=== PATIENT | female | born 1930 | race Caucasian/White ===

== ENCOUNTER 2017-03-26 11:37 | Inpatient (IN) | payer MEDICARE ==
[~2017-03-26] VITALS: Ht 142.2 cm; Wt 58.5 kg
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
[2017-03-26] MEDS ORDERED: ACETAMINOPHEN 650 MG SUPP.RECT RC PRN (13:15)
[2017-03-26] MEDS ORDERED: MAG HYDROX/AL HYDROX/SIMETH 30 ML LIQUID UDC PO PRN (13:15)
[2017-03-26] MEDS ORDERED: ACETAMINOPHEN 325 MG TABLET PO PRN (13:15)
[2017-03-26] MEDS ORDERED: ZOLPIDEM 5 MG TABLET PO PRN (13:15)
[2017-03-26] MEDS ORDERED: MAGNESIUM HYDROXIDE 30 ML LIQUID UDC PO PRN (20:30)
[2017-03-26] MEDS: NYSTATIN POWDER 15 GM BOTTLE TOP SCH (20:35)
[2017-03-26 21:07] VITALS: BP 127/61
[2017-03-27 07:30] VITALS: BP 127/59
[2017-03-27 07:43] LABS: BASOPHILS % (AUTO) 0.5 % (0.0-2.0); EOSINOPHILS # (AUTO) 0.2 K/uL (0.0-0.7); EOSINOPHILS % (AUTO) 2.5 % (0.0-7.0); HEMATOCRIT 41.2 % (37-47); HEMOGLOBIN 13.9 G/DL (12.0-16.0); LYMPHOCYTES # (AUTO) 2.1 K/UL (0.8-4.8); LYMPHOCYTES % (AUTO) 27.1 % (20.5-51.5); MEAN CORPUSCULAR HEMOGLOBIN 29.8 UUG (27.0-31.0); MEAN CORPUSCULAR HGB CONC 34 g/dL (32.0-37.0); MEAN CORPUSCULAR VOLUME 88.4 FL (81.0-99.0); MONOCYTES # (AUTO) 0.6 K/UL (0.1-1.30); MONOCYTES % (AUTO) 8.2 % (0.0-11.0); NEUTROPHILS # (AUTO) 4.7 K/UL (1.8-8.9); NEUTROPHILS % (AUTO) 61.7 % (38.5-71.5); PLATELET COUNT (AUTO) 221 K/UL (150-450); RED BLOOD CELL COUNT(AUTO) 4.66 MIL/UL (4.2-5.4); WHITE BLOOD COUNT (AUTO) 7.6 K/UL (4.0-11.2)
[2017-03-27 07:54] LABS: ALANINE AMINOTRANSFERASE 13 U/L (14-59); ALKALINE PHOSPHATASE 105 U/L (50-136); ASPARTATE AMINOTRANSFERASE 15 U/L (15-37); BILIRUBIN,TOTAL 1.1 mg/dL (0.2-1.0); CARBON DIOXIDE 25 mmol/L (21-32); CHLORIDE 110 mmol/L (98-107); CHOLESTEROL 239 mg/dL (<200); CREATININE 0.7 mg/dL (0.6-1.3); GLUCOSE 102 mg/dL (74-106); HDL CHOLESTEROL 74 mg/dL (40-60); POTASSIUM 3.9 mmol/L (3.5-5.1); TOTAL PROTEIN, SERUM 6.6 g/dL (6.4-8.2); TRIGLYCERIDES 95 MG/DL (30-150); UREA NITROGEN, BLOOD 16 mg/dL (7-18)
[2017-03-27 08:02] LABS: THYROID STIMULATING HORMONE 3.181 mIU/mL (0.358-3.740)
[2017-03-27] MEDS: LORAZEPAM 1 MG TABLET PO PRN (09:14)
[2017-03-27] MEDS: NYSTATIN POWDER 15 GM BOTTLE TOP SCH ×2 (09:31→20:25)
[2017-03-27 15:14] VITALS: BP 125/64
[2017-03-27 20:06] VITALS: BP 141/63
[2017-03-27] MEDS: QUETIAPINE FUMARATE 25 MG TABLET PO SCH (20:23)
[2017-03-27] MEDS: ATORVASTATIN 10 MG TABLET PO SCH (20:23)
--- NOTE | 2017-03-27 21:30 | NUR ---
Pt C/O 11/21 HEADACHE, TYLENOL 650mg ADMINISTERED WITH GOOD EFFECT.
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
[2017-03-28 07:30] VITALS: BP 117/54
[2017-03-28] MEDS: NYSTATIN POWDER 15 GM BOTTLE TOP SCH ×2 (09:56→20:35)
[2017-03-28 15:18] VITALS: BP 141/71
[2017-03-28 20:07] VITALS: BP 129/65
[2017-03-28] MEDS: QUETIAPINE FUMARATE 25 MG TABLET PO SCH (20:35)
[2017-03-28] MEDS: ATORVASTATIN 10 MG TABLET PO SCH (20:36)
[2017-03-29 06:57] LABS: *BILIRUBIN,URIN NEGATIVE (NEGATIVE); *BLOOD, URINE NEGATIVE (NEGATIVE); *CLARITY,URINE CLEAR (CLEAR); *COLOR,URINE YELLOW (YELLOW); *KETONES,URINE NEGATIVE (NEGATIVE); *PROTEIN,URINE NEGATIVE (NEGATIVE); *UROBILINOGEN,URINE 0.2 E.U./dl (NORMAL); LEUKOCYTE ESTERASE ,URINE 1+ (NEGATIVE); NITRITE, URINE NEGATIVE (NEGATIVE); UGLUCOSE NEGATIVE (NEGATIVE)
[2017-03-29 07:06] LABS: BACTERIA,URINE FEW /HPF (NONE SEEN); RBC,URINE 0-3 /HPF (0-3); SQUAMOUS EPITHELIAL CELL,UR FEW /HPF (NONE SEEN)
[2017-03-29 07:30] VITALS: BP 136/59
[2017-03-29] MEDS: NYSTATIN POWDER 15 GM BOTTLE TOP SCH ×2 (09:13→20:55)
[2017-03-29 16:00] VITALS: BP 129/64
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
--- NOTE | 2017-03-29 18:00 | NUR ---
Pt's rash on mid CW healing. Pt has been compliant with treatment.
[2017-03-29 20:30] VITALS: BP 126/59
[2017-03-29] MEDS: ATORVASTATIN 10 MG TABLET PO SCH (20:55)
[2017-03-29] MEDS: QUETIAPINE FUMARATE 25 MG TABLET PO SCH (20:55)
--- NOTE | 2017-03-29 22:00 | NUR ---
received to care, sitting on her bed, isolative, but pleasant when engaged. compliant with medications, and staff direction. as of 2199, she appears to be asleep. no distress noted. will continue to monitor closely.
--- NOTE | 2017-03-30 06:00 | NUR ---
slept 9.0 hours, total. continues to sleep. no distress noted.
[2017-03-30 07:30] VITALS: BP 136/62
[2017-03-30] MEDS: NYSTATIN POWDER 15 GM BOTTLE TOP SCH ×2 (09:20→20:45)
[2017-03-30] MEDS: LORAZEPAM 1 MG TABLET PO PRN (10:11)
[2017-03-30 16:19] VITALS: BP 131/65
[2017-03-30 20:44] VITALS: BP 127/67
[2017-03-30] MEDS: QUETIAPINE FUMARATE 25 MG TABLET PO SCH (20:45)
[2017-03-30] MEDS: ATORVASTATIN 10 MG TABLET PO SCH (20:45)
--- NOTE | 2017-03-31 06:00 | NUR ---
slept 6.0 hours, total.
[2017-03-31 07:30] VITALS: BP 136/64
[2017-03-31] MEDS: NYSTATIN POWDER 15 GM BOTTLE TOP SCH ×2 (09:11→20:28)
[2017-03-31 15:22] VITALS: BP 131/58
[2017-03-31] MEDS: QUETIAPINE FUMARATE 25 MG TABLET PO SCH (20:27)
[2017-03-31] MEDS: ATORVASTATIN 10 MG TABLET PO SCH (20:27)
[2017-03-31 20:36] VITALS: BP 135/64
--- NOTE | 2017-03-31 20:56 | NUR ---
Patient in her room. A/O x 1; she continue been suspicious, guarded. However, she was able to comply with medication regiment at this time. She is able to make her needs know. Denies SI or HI AH/V/S at this time.
[2017-04-01 07:30] VITALS: BP 130/59
[2017-04-01] MEDS: NYSTATIN POWDER 15 GM BOTTLE TOP SCH ×2 (08:34→21:08)
[2017-04-01 15:00] VITALS: BP 143/59
--- NOTE | 2017-04-01 15:43 | NUR ---
Discharge Planning Note: SW attempted to call patient's daughter Mary Armenta [[phone]] to discuss discharge plans. There was no answer, SW left a voicemail.
--- NOTE | 2017-04-01 16:17 | NUR ---
Associate Justice: MARTHA submitted [facility] Mental Health Report to DOJ on 04/01 at 4:15pm.
[2017-04-01 20:27] VITALS: BP 128/68
[2017-04-01] MEDS: ATORVASTATIN 10 MG TABLET PO SCH (20:33)
[2017-04-01] MEDS: QUETIAPINE FUMARATE 25 MG TABLET PO SCH (20:33)
--- NOTE | 2017-04-01 21:06 | NUR ---
PATIENT RECEIVED IN ROOM AWAKE SITTING UP IN BED. PATIENT ALERT/ORIENTED X2. PATIENT CONFUSED, PATIENT PATIENT REMAINS PARANOID/SUSPICIOUS/GUARDED. PATIENT REQUIRES PROMPTING WITH MEDICATION, COMPLAINT WITH MEDICATION WITH PROMPTING. PATIENT DENIES PAIN AT THIS TIME, WILL CONTINUE TO MONITOR. BED IN LOWEST POSITION, BED LOCKED, AND BED ALARM ON WHILE IN BED.
[2017-04-02 07:30] VITALS: BP 122/59
[2017-04-02 15:09] VITALS: BP 125/58
--- NOTE | 2017-04-02 16:09 | NUR ---
Wednesday Discharge Note: Patient will be discharged home with family [[place] [address]] via private transportation at 12pm. SW spoke with patients daughter Mary Pope (Maria) [[phone]] who stated she will fruit picker patient. Patients daughter is aware and agreeable to discharge plans. Patient was referred to [facility] [phone] for [facility] referrals. Patient was provided with outpatient mental health resources to [facility] , Oney[facility] Dodson , and the [place] [facility] . Patient was also provided a list of referrals for outpatient psychiatrists including Dr. Yuan [[phone]], Dr. Parnell [[phone]], and Dr. Brothers [[phone]]. Patient was also provided with referrals for community resources [[facility]: [phone]; [facility]: [phone]].
[2017-04-02 20:07] VITALS: BP 121/60
[2017-04-02] MEDS: ATORVASTATIN 10 MG TABLET PO SCH (20:12)
[2017-04-02] MEDS: NYSTATIN POWDER 15 GM BOTTLE TOP SCH (20:12)
[2017-04-02] MEDS: QUETIAPINE FUMARATE 25 MG TABLET PO SCH (20:12)
[2017-04-03 07:30] VITALS: BP 122/62
[2017-04-03] MEDS: NYSTATIN POWDER 15 GM BOTTLE TOP SCH (09:14)
--- NOTE | 2017-04-03 13:30 | NUR ---
PT IS BEING DISCHARGED HOME WITH DAUGHTER SRAVAN. DISCHARGE INSTRUCTIONS ARE GIVEN TO THE DAUGHTER. PT IS FORGETFUL AND DISORGANIZED, BUT COOPERATIVE AND COMPLIANT. REFERALS FOR PSYCHIATRISTS AND INTERNISTS WERE GIVEN. SRAVAN VERBALIZED UNDERSTANDING. PRESCRIPTIONS FOR BOTH MEDICAL AND PSYCHIATRIC MEDICATIONS GIVEN. ALL BELONGINGS RETURNED, MONEY COUNTED IN THE PRESENCE OF THE PATIENT, DAUGHTER, ASHLEY LOVELL AND LUCIANO LAWSON.
== END 2017-04-03 13:30 | disposition home or self-care (01) | DRG 885 ==
LOC: GPS 12:46
PROVIDERS: ADMIT Psychiatry & Neurology Psychiatry; ATTEND Internal Medicine
DX: F29 Unspecified psychosis not due to a substance or known physiological condition (principal); G93.40 Encephalopathy, unspecified; E88.09 Other disorders of plasma-protein metabolism, not elsewhere classified; F03.91 Unspecified dementia, unspecified severity, with behavioral disturbance; E78.5 Hyperlipidemia, unspecified; E80.6 Other disorders of bilirubin metabolism; L30.9 Dermatitis, unspecified; Z79.899 Other long term (current) drug therapy; L98.8 Other specified disorders of the skin and subcutaneous tissue; K42.9 Umbilical hernia without obstruction or gangrene
CPT/HCPCS: 36415; 70450; 83735; 84100; 84443; 85025; 87086

== ENCOUNTER 2017-11-22 23:18 | Inpatient (IN) | payer MEDICARE ==
[~2017-11-22] VITALS: Ht 139.7 cm; Wt 57.6 kg
[2017-11-22] MEDS ORDERED: TEMA7.5C2 PO (23:48)
[2017-11-22] MEDS ORDERED: ACET325T53 PO (23:48)
[2017-11-22] MEDS ORDERED: LORA2VIA32 IM (23:48)
[2017-11-22] MEDS ORDERED: QUET25TA PO (23:48)
[2017-11-22] MEDS ORDERED: LOPE2TAB25 PO (23:48)
[2017-11-22] MEDS ORDERED: NITR0.4T48 PO (23:48)
[2017-11-22] MEDS ORDERED: ASPI81TA31 PO (23:48)
[2017-11-22] MEDS ORDERED: LORA0.5T PO (23:48)
[2017-11-22] MEDS ORDERED: DOCU250C14 PO (23:48)
[2017-11-22] MEDS ORDERED: PSYL1PAC8 PO (23:48)
[2017-11-22] MEDS ORDERED: MULT-1119 PO (23:48)
[2017-11-22] MEDS ORDERED: LISI-607 PO (23:48)
[2017-11-22] MEDS ORDERED: METO25TA3 PO (23:48)
[2017-11-22] MEDS ORDERED: MAG30ORA PO (23:48)
[2017-11-22] MEDS ORDERED: ATOR20TA27 PO (23:48)
[2017-11-23] MEDS ORDERED: MAG HYDROX/AL HYDROX/SIMETH 30 ML LIQUID UDC PO PRN (02:00)
[2017-11-23] MEDS ORDERED: MAGNESIUM HYDROXIDE 30 ML LIQUID UDC PO PRN (02:00)
[2017-11-23 07:30] VITALS: BP 171/80
[2017-11-23] MEDS: SERTRALINE HCL 50 MG TABLET PO SCH (12:26)
[2017-11-23 15:35] VITALS: BP 142/74
[2017-11-23] MEDS: ATORVASTATIN 20 MG TABLET PO SCH (19:51)
[2017-11-23] MEDS: QUETIAPINE FUMARATE 25 MG TABLET PO SCH (19:51)
[2017-11-24 08:00] VITALS: BP 140/58
[2017-11-24] MEDS: ASPIRIN 81 MG TAB.CHEW PO SCH (09:00)
[2017-11-24] MEDS: DOCUSATE SODIUM 250 MG CAPSULE PO SCH (09:00)
[2017-11-24] MEDS: METOPROLOL SUCCINATE XL 25 MG TAB.SR.24H PO SCH (09:00)
[2017-11-24] MEDS: SERTRALINE HCL 50 MG TABLET PO SCH (09:00)
[2017-11-24] MEDS: PSYLLIUM SEED PACKET PO SCH (09:00)
[2017-11-24] MEDS: MULTIVITAMINS,THERAPEUTIC TABLET PO SCH (09:00)
[2017-11-24] MEDS: LISINOPRIL 5 MG TABLET PO SCH (09:01)
[2017-11-24 12:13] VITALS: BP 106/49
[2017-11-24 16:00] VITALS: BP 108/54
[2017-11-24 19:30] VITALS: BP 132/55
[2017-11-24] MEDS: LORAZEPAM 1 MG TABLET PO PRN (19:55)
[2017-11-24] MEDS: QUETIAPINE FUMARATE 25 MG TABLET PO SCH (21:04)
[2017-11-24] MEDS: ATORVASTATIN 20 MG TABLET PO SCH (21:04)
[2017-11-25 08:00] VITALS: BP 121/61
[2017-11-25] MEDS: SERTRALINE HCL 50 MG TABLET PO SCH (09:00)
[2017-11-25] MEDS: DOCUSATE SODIUM 250 MG CAPSULE PO SCH (09:00)
[2017-11-25] MEDS: MULTIVITAMINS,THERAPEUTIC TABLET PO SCH (09:01)
[2017-11-25] MEDS: METOPROLOL SUCCINATE XL 25 MG TAB.SR.24H PO SCH (09:01)
[2017-11-25] MEDS: ASPIRIN 81 MG TAB.CHEW PO SCH (09:02)
[2017-11-25] MEDS: PSYLLIUM SEED PACKET PO SCH (09:02)
[2017-11-25] MEDS: LISINOPRIL 5 MG TABLET PO SCH (09:02)
[2017-11-25] MEDS ORDERED: LORAZEPAM 2 MG/1 ML VIAL IM ONE (14:15)
[2017-11-25] MEDS ORDERED: OLANZAPINE 10 MG VIAL IM ONE (14:15)
[2017-11-25 16:00] VITALS: BP 119/50
[2017-11-25 20:53] VITALS: BP 100/39
[2017-11-25] MEDS: QUETIAPINE FUMARATE 25 MG TABLET PO SCH (21:00)
[2017-11-25] MEDS: ATORVASTATIN 20 MG TABLET PO SCH (21:00)
[2017-11-25 21:30] VITALS: BP 100/66
[2017-11-26] MEDS: ACETAMINOPHEN 325 MG TABLET PO PRN (06:58)
[2017-11-26 07:30] VITALS: BP 123/33
[2017-11-26] MEDS: DOCUSATE SODIUM 250 MG CAPSULE PO SCH (09:00)
[2017-11-26] MEDS: METOPROLOL SUCCINATE XL 25 MG TAB.SR.24H PO SCH (09:00)
[2017-11-26] MEDS: PSYLLIUM SEED PACKET PO SCH (09:00)
[2017-11-26] MEDS: LISINOPRIL 5 MG TABLET PO SCH (09:00)
[2017-11-26] MEDS: ASPIRIN 81 MG TAB.CHEW PO SCH (09:04)
[2017-11-26] MEDS: QUETIAPINE FUMARATE 25 MG TABLET PO SCH ×2 (09:05→20:35)
[2017-11-26] MEDS: MULTIVITAMINS,THERAPEUTIC TABLET PO SCH (09:05)
[2017-11-26] MEDS: SERTRALINE HCL 50 MG TABLET PO SCH (09:06)
[2017-11-26 15:45] VITALS: BP 160/70
[2017-11-26] MEDS: ATORVASTATIN 20 MG TABLET PO SCH (20:35)
[2017-11-26 21:29] VITALS: BP 128/60
[2017-11-26] MEDS: ZOLPIDEM 5 MG TABLET PO PRN (23:34)
[2017-11-27] VITALS (12 sets, daily range): BP systolic 114–171; BP diastolic 53–80
[2017-11-27] MEDS: LISINOPRIL 5 MG TABLET PO SCH ×2 (09:00→10:19)
[2017-11-27] MEDS: ASPIRIN 81 MG TAB.CHEW PO SCH (09:00)
[2017-11-27] MEDS: MULTIVITAMINS,THERAPEUTIC TABLET PO SCH (09:00)
[2017-11-27] MEDS: QUETIAPINE FUMARATE 25 MG TABLET PO SCH ×2 (09:00→21:14)
[2017-11-27] MEDS: SERTRALINE HCL 50 MG TABLET PO SCH (09:00)
[2017-11-27] MEDS: ACETAMINOPHEN 325 MG TABLET PO SCH ×2 (10:17→17:38)
[2017-11-27] MEDS: DOCUSATE SODIUM 250 MG CAPSULE PO SCH (10:17)
[2017-11-27] MEDS: METOPROLOL SUCCINATE XL 25 MG TAB.SR.24H PO SCH (10:18)
[2017-11-27] MEDS: PSYLLIUM SEED PACKET PO SCH (10:20)
[2017-11-27] MEDS: LORAZEPAM 1 MG TABLET PO PRN (17:38)
[2017-11-27] MEDS: ATORVASTATIN 20 MG TABLET PO SCH (21:14)
[2017-11-28 07:30] VITALS: BP 112/50
[2017-11-28] MEDS: DOCUSATE SODIUM 250 MG CAPSULE PO SCH (09:35)
[2017-11-28] MEDS: ASPIRIN 81 MG TAB.CHEW PO SCH (09:35)
[2017-11-28] MEDS: MULTIVITAMINS,THERAPEUTIC TABLET PO SCH (09:36)
[2017-11-28] MEDS: LISINOPRIL 5 MG TABLET PO SCH (09:36)
[2017-11-28] MEDS: QUETIAPINE FUMARATE 25 MG TABLET PO SCH ×3 (09:36→22:11)
[2017-11-28] MEDS: SERTRALINE HCL 50 MG TABLET PO SCH (09:37)
[2017-11-28] MEDS: METOPROLOL SUCCINATE XL 25 MG TAB.SR.24H PO SCH (09:37)
[2017-11-28] MEDS: ACETAMINOPHEN 325 MG TABLET PO PRN ×2 (10:05→19:54)
[2017-11-28] MEDS: PSYLLIUM SEED PACKET PO SCH (10:14)
[2017-11-28 15:30] VITALS: BP 110/51
[2017-11-28] MEDS: LORAZEPAM 1 MG TABLET PO PRN (19:54)
[2017-11-28 20:00] VITALS: BP 102/55
[2017-11-28] MEDS: ATORVASTATIN 20 MG TABLET PO SCH ×2 (21:00→22:10)
[2017-11-29] MEDS: LORAZEPAM 1 MG TABLET PO PRN (03:37)
[2017-11-29] MEDS: ACETAMINOPHEN 325 MG TABLET PO PRN (03:37)
[2017-11-29 07:30] VITALS: BP 120/51
[2017-11-29] MEDS: LISINOPRIL 5 MG TABLET PO SCH (08:40)
[2017-11-29] MEDS: METOPROLOL SUCCINATE XL 25 MG TAB.SR.24H PO SCH (08:40)
[2017-11-29] MEDS: MULTIVITAMINS,THERAPEUTIC TABLET PO SCH (08:40)
[2017-11-29] MEDS: QUETIAPINE FUMARATE 25 MG TABLET PO SCH ×2 (08:40→20:43)
[2017-11-29] MEDS: ASPIRIN 81 MG TAB.CHEW PO SCH (08:41)
[2017-11-29] MEDS: SERTRALINE HCL 50 MG TABLET PO SCH (08:42)
[2017-11-29] MEDS: DOCUSATE SODIUM 250 MG CAPSULE PO SCH (08:42)
[2017-11-29] MEDS: PSYLLIUM SEED PACKET PO SCH (08:42)
[2017-11-29 16:32] VITALS: BP 106/95
[2017-11-29 19:30] VITALS: BP 112/38
[2017-11-29] MEDS: ATORVASTATIN 20 MG TABLET PO SCH (20:43)
[2017-11-29] MEDS: ZOLPIDEM 5 MG TABLET PO PRN (23:20)
[2017-11-30 07:30] VITALS: BP 114/57
[2017-11-30 07:31] LABS: BASOPHILS % (AUTO) 0.6 % (0.0-2.0); EOSINOPHILS # (AUTO) 0.4 K/uL (0.0-0.7); EOSINOPHILS % (AUTO) 5.7 % (0.0-7.0); HEMATOCRIT 39.7 % (31.2-41.9); HEMOGLOBIN 13.5 g/dL (10.9-14.3); LYMPHOCYTES # (AUTO) 2.2 K/uL (20.0-40.0); LYMPHOCYTES % (AUTO) 30.3 % (20.5-51.5); MEAN CORPUSCULAR HEMOGLOBIN 30.5 uug (24.7-32.8); MEAN CORPUSCULAR HGB CONC 34 g/dL (32.3-35.6); MEAN CORPUSCULAR VOLUME 89.5 fL (75.5-95.3); MONOCYTES # (AUTO) 0.8 K/uL (2.0-10.0); NEUTROPHILS # (AUTO) 3.9 K/uL (1.8-8.9); NEUTROPHILS % (AUTO) 52.4 % (38.5-71.5); PLATELET COUNT (AUTO) 161 K/uL (179-408); RED BLOOD CELL COUNT(AUTO) 4.44 MIL/uL (3.63-4.92); WHITE BLOOD COUNT (AUTO) 7.4 K/uL (3.8-11.8)
[2017-11-30] MEDS: ASPIRIN 81 MG TAB.CHEW PO SCH (08:38)
[2017-11-30] MEDS: QUETIAPINE FUMARATE 25 MG TABLET PO SCH ×2 (08:39→21:20)
[2017-11-30] MEDS: METOPROLOL SUCCINATE XL 25 MG TAB.SR.24H PO SCH (08:40)
[2017-11-30] MEDS: LISINOPRIL 5 MG TABLET PO SCH (08:41)
[2017-11-30] MEDS: DOCUSATE SODIUM 250 MG CAPSULE PO SCH (08:41)
[2017-11-30] MEDS: MULTIVITAMINS,THERAPEUTIC TABLET PO SCH (08:41)
[2017-11-30] MEDS: PSYLLIUM SEED PACKET PO SCH (08:41)
[2017-11-30] MEDS: SERTRALINE HCL 50 MG TABLET PO SCH (08:41)
[2017-11-30 10:58] LABS: CARBON DIOXIDE 28 mmol/L (21-32); CHLORIDE 107 mmol/L (98-107); CREATININE 0.7 mg/dL (0.6-1.3); GLUCOSE 93 mg/dL (74-106); MAGNESIUM 1.9 mg/dL (1.8-2.4); PHOSPHOROUS 3.8 mg/dL (2.5-4.9); POTASSIUM 4.5 mmol/L (3.5-5.1); UREA NITROGEN, BLOOD 21 mg/dL (7-18)
[2017-11-30 16:29] VITALS: BP 118/58
[2017-11-30] MEDS: LORAZEPAM 1 MG TABLET PO PRN (19:35)
[2017-11-30 19:52] VITALS: BP 106/55
[2017-11-30] MEDS: ATORVASTATIN 20 MG TABLET PO SCH (21:20)
[2017-11-30 21:30] VITALS: BP 134/52
[2017-12-01 08:00] VITALS: BP 151/65
[2017-12-01] MEDS: PSYLLIUM SEED PACKET PO SCH (09:08)
[2017-12-01] MEDS: DOCUSATE SODIUM 250 MG CAPSULE PO SCH (09:08)
[2017-12-01] MEDS: QUETIAPINE FUMARATE 25 MG TABLET PO SCH ×2 (09:08→20:00)
[2017-12-01] MEDS: METOPROLOL SUCCINATE XL 25 MG TAB.SR.24H PO SCH (09:09)
[2017-12-01] MEDS: LISINOPRIL 5 MG TABLET PO SCH (09:12)
[2017-12-01] MEDS: MULTIVITAMINS,THERAPEUTIC TABLET PO SCH (09:12)
[2017-12-01] MEDS: SERTRALINE HCL 50 MG TABLET PO SCH (09:13)
[2017-12-01] MEDS: ASPIRIN 81 MG TAB.CHEW PO SCH (09:13)
[2017-12-01 16:00] VITALS: BP 102/53
[2017-12-01] MEDS: ATORVASTATIN 20 MG TABLET PO SCH (20:00)
[2017-12-01 20:19] VITALS: BP 116/56
[2017-12-02] MEDS: SERTRALINE HCL 50 MG TABLET PO SCH (09:00)
[2017-12-02] MEDS: LISINOPRIL 5 MG TABLET PO SCH (09:00)
[2017-12-02] MEDS: ASPIRIN 81 MG TAB.CHEW PO SCH (09:00)
[2017-12-02] MEDS: QUETIAPINE FUMARATE 25 MG TABLET PO SCH ×3 (09:00→20:43)
[2017-12-02] MEDS: PSYLLIUM SEED PACKET PO SCH (09:00)
[2017-12-02] MEDS: METOPROLOL SUCCINATE XL 25 MG TAB.SR.24H PO SCH (09:00)
[2017-12-02] MEDS: DOCUSATE SODIUM 250 MG CAPSULE PO SCH (09:00)
[2017-12-02] MEDS: MULTIVITAMINS,THERAPEUTIC TABLET PO SCH (09:00)
[2017-12-02] MEDS ORDERED: OLANZAPINE 10 MG VIAL IM ONE (09:15)
[2017-12-02 16:27] VITALS: BP 158/45
[2017-12-02] MEDS: ATORVASTATIN 20 MG TABLET PO SCH (20:43)
[2017-12-02 21:26] VITALS: BP 157/76
[2017-12-03 07:30] VITALS: BP 133/55
[2017-12-03] MEDS: DOCUSATE SODIUM 250 MG CAPSULE PO SCH (09:12)
[2017-12-03] MEDS: ASPIRIN 81 MG TAB.CHEW PO SCH (09:12)
[2017-12-03] MEDS: MULTIVITAMINS,THERAPEUTIC TABLET PO SCH (09:12)
[2017-12-03] MEDS: QUETIAPINE FUMARATE 25 MG TABLET PO SCH ×3 (09:12→20:04)
[2017-12-03] MEDS: SERTRALINE HCL 50 MG TABLET PO SCH (09:13)
[2017-12-03] MEDS: LISINOPRIL 5 MG TABLET PO SCH (09:13)
[2017-12-03] MEDS: METOPROLOL SUCCINATE XL 25 MG TAB.SR.24H PO SCH (09:14)
[2017-12-03] MEDS: PSYLLIUM SEED PACKET PO SCH (09:14)
[2017-12-03 15:45] VITALS: BP 139/52
[2017-12-03] MEDS: ATORVASTATIN 20 MG TABLET PO SCH (20:04)
[2017-12-03 20:31] VITALS: BP 121/53
[2017-12-04 07:30] VITALS: BP 143/51
[2017-12-04] MEDS: PSYLLIUM SEED PACKET PO SCH (08:47)
[2017-12-04] MEDS: DOCUSATE SODIUM 250 MG CAPSULE PO SCH (08:48)
[2017-12-04] MEDS: MULTIVITAMINS,THERAPEUTIC TABLET PO SCH (08:48)
[2017-12-04] MEDS: LISINOPRIL 5 MG TABLET PO SCH (08:48)
[2017-12-04] MEDS: QUETIAPINE FUMARATE 25 MG TABLET PO SCH ×3 (08:48→20:52)
[2017-12-04] MEDS: SERTRALINE HCL 50 MG TABLET PO SCH (08:49)
[2017-12-04] MEDS: ASPIRIN 81 MG TAB.CHEW PO SCH (08:49)
[2017-12-04] MEDS: METOPROLOL SUCCINATE XL 25 MG TAB.SR.24H PO SCH (08:53)
[2017-12-04 15:30] VITALS: BP 113/51
[2017-12-04] MEDS: ATORVASTATIN 20 MG TABLET PO SCH (20:51)
[2017-12-05] MEDS: LORAZEPAM 1 MG TABLET PO PRN ×2 (05:33→12:01)
[2017-12-05 07:30] VITALS: BP 130/51
[2017-12-05] MEDS: PSYLLIUM SEED PACKET PO SCH (09:00)
[2017-12-05] MEDS: MULTIVITAMINS,THERAPEUTIC TABLET PO SCH (09:00)
[2017-12-05] MEDS: METOPROLOL SUCCINATE XL 25 MG TAB.SR.24H PO SCH (09:00)
[2017-12-05] MEDS: SERTRALINE HCL 50 MG TABLET PO SCH (09:00)
[2017-12-05] MEDS: ASPIRIN 81 MG TAB.CHEW PO SCH (09:00)
[2017-12-05] MEDS: LISINOPRIL 5 MG TABLET PO SCH (09:00)
[2017-12-05] MEDS: DOCUSATE SODIUM 250 MG CAPSULE PO SCH (09:00)
[2017-12-05] MEDS: QUETIAPINE FUMARATE 25 MG TABLET PO SCH ×3 (09:00→20:30)
[2017-12-05 15:35] VITALS: BP 107/50
[2017-12-05 20:00] VITALS: BP 121/54
[2017-12-05] MEDS: ATORVASTATIN 20 MG TABLET PO SCH (20:30)
[2017-12-06 07:30] VITALS: BP 108/49
[2017-12-06] MEDS: QUETIAPINE FUMARATE 25 MG TABLET PO SCH ×4 (09:00→20:23)
[2017-12-06] MEDS: SERTRALINE HCL 50 MG TABLET PO SCH (09:00)
[2017-12-06] MEDS: PSYLLIUM SEED PACKET PO SCH (09:00)
[2017-12-06] MEDS: LISINOPRIL 5 MG TABLET PO SCH (09:00)
[2017-12-06] MEDS: ASPIRIN 81 MG TAB.CHEW PO SCH ×2 (09:00→13:46)
[2017-12-06] MEDS: METOPROLOL SUCCINATE XL 25 MG TAB.SR.24H PO SCH (09:00)
[2017-12-06] MEDS: DOCUSATE SODIUM 250 MG CAPSULE PO SCH (09:00)
[2017-12-06] MEDS: MULTIVITAMINS,THERAPEUTIC TABLET PO SCH (09:00)
[2017-12-06 16:21] VITALS: BP 144/52
[2017-12-06 19:45] VITALS: BP 138/56
[2017-12-06] MEDS: ATORVASTATIN 20 MG TABLET PO SCH (20:23)
[2017-12-07] MEDS: MULTIVITAMINS,THERAPEUTIC TABLET PO SCH (09:00)
[2017-12-07] MEDS: DOCUSATE SODIUM 250 MG CAPSULE PO SCH (09:00)
[2017-12-07] MEDS: ASPIRIN 81 MG TAB.CHEW PO SCH (09:00)
[2017-12-07] MEDS: METOPROLOL SUCCINATE XL 25 MG TAB.SR.24H PO SCH ×2 (09:00→15:28)
[2017-12-07] MEDS: PSYLLIUM SEED PACKET PO SCH (09:00)
[2017-12-07] MEDS: QUETIAPINE FUMARATE 25 MG TABLET PO SCH ×3 (09:12→20:20)
[2017-12-07] MEDS: SERTRALINE HCL 50 MG TABLET PO SCH (09:12)
[2017-12-07] MEDS: LISINOPRIL 5 MG TABLET PO SCH (09:13)
[2017-12-07] MEDS: ATORVASTATIN 20 MG TABLET PO SCH (20:20)
[2017-12-07 20:42] VITALS: BP 139/61
[2017-12-08 07:30] VITALS: BP 128/62
[2017-12-08] MEDS: MULTIVITAMINS,THERAPEUTIC TABLET PO SCH (09:00)
[2017-12-08] MEDS: DOCUSATE SODIUM 250 MG CAPSULE PO SCH (09:00)
[2017-12-08] MEDS: QUETIAPINE FUMARATE 25 MG TABLET PO SCH (09:28)
[2017-12-08] MEDS: ASPIRIN 81 MG TAB.CHEW PO SCH (09:32)
[2017-12-08] MEDS: SERTRALINE HCL 50 MG TABLET PO SCH (09:32)
[2017-12-08] MEDS: LISINOPRIL 5 MG TABLET PO SCH (09:32)
[2017-12-08] MEDS: METOPROLOL SUCCINATE XL 25 MG TAB.SR.24H PO SCH (09:33)
[2017-12-08] MEDS: PSYLLIUM SEED PACKET PO SCH (09:34)
[2017-12-08 12:49] VITALS: BP 139/63
== END 2017-12-08 14:15 | DRG 885 ==
LOC: ER 23:27 → GPS 11-23 01:20
PROVIDERS: ADMIT Psychiatry & Neurology Psychiatry; ATTEND Nurse Practitioner Acute Care
DX: F29 Unspecified psychosis not due to a substance or known physiological condition (principal); F03.91 Unspecified dementia, unspecified severity, with behavioral disturbance; F41.9 Anxiety disorder, unspecified; E78.5 Hyperlipidemia, unspecified; Z91.19 Patient's noncompliance with other medical treatment and regimen; Z79.899 Other long term (current) drug therapy; K59.09 Other constipation; I10 Essential (primary) hypertension; R22.0 Localized swelling, mass and lump, head; W18.39XA Other fall on same level, initial encounter; Y93.89 Activity, other specified; Y92.232 Corridor of hospital as the place of occurrence of the external cause; Z86.59 Personal history of other mental and behavioral disorders; M25.511 Pain in right shoulder
CPT/HCPCS: 36415; 70450; 71045; 72170; 73030; 83735; 84100; 85025; 93005; A4663; J2060; J2358